=== PATIENT | male | born 1990 | race Two or more races ===

== ENCOUNTER 2023-11-26 08:26 | Emergency (ER) | payer OTHER ==
[~2023-11-26] VITALS: Ht 177.8 cm; Wt 74.8 kg
[2023-11-26] MEDS ORDERED: ORPHENADRINE CITRATE 30 MG/ML AMPUL IM STA (08:40)
[2023-11-26] MEDS ORDERED: DEXAMETHASONE SODIUM PHOSPHATE 4 MG/ML VIAL IM STA (08:40)
[2023-11-26] MEDS ORDERED: KETOROLAC TROMETHAMINE 30 MG VIAL IM ONE (08:45)
[2023-11-26] MEDS ORDERED: IBU800 MG PO (11:25)
== END 2023-11-26 12:05 | disposition home or self-care (01) ==
LOC: ER 08:27
DX: S40.012A Contusion of left shoulder, initial encounter (principal); F17.210 Nicotine dependence, cigarettes, uncomplicated; Z88.0 Allergy status to penicillin; W18.39XA Other fall on same level, initial encounter; Y93.89 Activity, other specified; Y92.018 Other place in single-family (private) house as the place of occurrence of the external cause

== ENCOUNTER 2025-06-01 12:43 | Inpatient (IN) | payer OTHER ==
[~2025-06-01] VITALS: Ht 165.1 cm; Wt 65.3 kg
[~2025-06-01 12:43] MED LIST: IBU800 MG PO
[2025-06-01] MEDS ORDERED: ALBUTEROL SULFATE 3 ML/2.5 MG AMPUL.NEB IH SCH ×2 (14:00→16:30)
[2025-06-01] MEDS ORDERED: KETOROLAC TROMETHAMINE 15 MG VIAL IU ONE (14:00)
[2025-06-01] MEDS ORDERED: 0.9 % SODIUM CHLORIDE 1,000 ML IV ONE (14:00)
[2025-06-01] MEDS ORDERED: ALBUTEROL SULFATE 3 ML/2.5 MG AMPUL.NEB IH ONE ×2 (14:04→17:36)
[2025-06-01] MEDS ORDERED: KETOROLAC TROMETHAMINE 30 MG VIAL ONE (14:16)
[2025-06-01 15:49] LABS: BASO % 0.4 % (0.1-1.2); EOS # 1.43 (0.04-0.54); EOS % 10.1 % (0.7-7.0); LYMPH # 1.91 (1.18-3.74); LYMPH % 13.5 % (19.3-53.1); MEAN PLATELET VOLUME 9.60 fl (9.4-12.4); MONO # 0.69 (0.24-0.82); MONO % 4.9 % (4.7-12.5); NEUT # 10.06 (1.56-6.13); NEUT % 70.7 % (34.0-71.1); RED CELL DISTRIBUTION WIDTH 12.7 % (11.6-14.4)
[2025-06-01 15:49] LABS: URINE APPEARANCE Cloudy; URINE BILIRRUBIN Negative (NEGATIVE); URINE BLOOD Negative; URINE COLOR Yellow; URINE GLUCOSE Negative (NEGATIVE); URINE KETONE Trace (NEGATIVE); URINE LEUKOCYTE Small; URINE NITRATE Negative; URINE PROTEIN Trace (NEGATIVE); URINE UROBILINOGEN 1.0 E.U./dl
[2025-06-01 15:52] LABS: URINE BACTERIA 61.1 uL (0.0-1933); URINE EPITHELIAL CELLS 8.6 uL (0.0-38.8); URINE RBC 25.6 uL (0.0-20.8); URINE WBC 71.8 uL (0.0-23.2)
[2025-06-01] MEDS ORDERED: levoFLOXacin IN DEXTROSE 5 % 5 MG/ML PIGGYBAG IV ONE (16:00)
[2025-06-01 16:07] LABS: COVID-19 AG NEGATIVE (NEGATIVE)
[2025-06-01 16:08] LABS: URINE CAST 0.00 uL (0.0-1.40)
[2025-06-01] MEDS ORDERED: METHYLPREDNISOLONE SOD SUCC 40 MG VIAL ONE (16:31)
[2025-06-01 16:35] LABS: BUN CREA RATIO 13.0 (7.0-25.0); CREATININE SERUM 0.91 mg/dL (0.70-1.30); GFR 94.81; GLUCOSE FASTING 92.0 mg/dL (65-100); OSMOLALITY SERUM 279.0 MOSM/KG (275-295)
[2025-06-01] MEDS ORDERED: METHYLPREDNISOLONE SOD SUCC 40 MG VIAL IV ONE (16:45)
[2025-06-01] MEDS ORDERED: GUAIFENESIN 200 MG/10 ML BLIST.PACK PO SCH (18:33)
[2025-06-01] MEDS ORDERED: IPRATROPIUM/ALBUTEROL SULFATE 3 ML AMPUL.NEB IH SCH (18:33)
[2025-06-01] MEDS ORDERED: levoFLOXacin IN DEXTROSE 5 % 150 ML IV SCH (18:33)
[2025-06-01] MEDS ORDERED: METHYLPREDNISOLONE SOD SUCC 40 MG VIAL IV SCH (18:34)
[2025-06-01] MEDS ORDERED: ACETAMINOPHEN 325 MG TABLET PO PRN (18:45)
[2025-06-01] MEDS ORDERED: 0.9 % SODIUM CHLORIDE 1,000 ML IV SCH (18:45)
[2025-06-01] MEDS ORDERED: IPRATROPIUM/ALBUTEROL SULFATE 3 ML AMPUL.NEB IH ONE (18:51)
[2025-06-01] MEDS ORDERED: GUAIFENESIN 200 MG/10 ML BLIST.PACK PO ONE (18:53)
[2025-06-02 00:34] VITALS: BP 96/62; O2SAT 95
[2025-06-02 08:00] VITALS: BP 101/60; O2SAT 95
[2025-06-02 16:47] LABS: COCAINE POSITIVE (NEGATIVE); METHADONE NEGATIVE (NEGATIVE); OPIATES POSITIVE (NEGATIVE); THC ( Cannabinoids) NEGATIVE (NEGATIVE)
[2025-06-02] MEDS ORDERED: BENZOCAINE/MENTHOL 90 ML BOTTLE TOP SCH (17:00)
[2025-06-02] MEDS ORDERED: LACTOBACILLUS ACIDOPHILUS 1 CAP CAP PO SCH (17:00)
[2025-06-02 17:41] VITALS: BP 90/65
[2025-06-03 01:47] VITALS: BP 103/62; O2SAT 96
[2025-06-03 09:11] VITALS: BP 106/61; O2SAT 96
[2025-06-03] MEDS ORDERED: METHYLPREDNISOLONE SOD SUCC 40 MG VIAL IV SCH (17:00)
[2025-06-03] MEDS ORDERED: EMOLLIENTS 6 OZ BOTTLE TOP SCH (21:00)
[2025-06-03 21:44] VITALS: BP 121/77
[2025-06-04 02:15] VITALS: BP 114/63; O2SAT 96
[2025-06-04 07:53] LABS: BASO % 0.1 % (0.1-1.2); EOS # 0.01 (0.04-0.54); EOS % 0.1 % (0.7-7.0); LYMPH # 0.77 (1.18-3.74); LYMPH % 5.5 % (19.3-53.1); MEAN PLATELET VOLUME 10.10 fl (9.4-12.4); MONO # 0.43 (0.24-0.82); MONO % 3.1 % (4.7-12.5); NEUT # 12.65 (1.56-6.13); NEUT % 90.6 % (34.0-71.1); RED CELL DISTRIBUTION WIDTH 13.2 % (11.6-14.4)
[2025-06-04 08:03] LABS: BUN CREA RATIO 16.0 (7.0-25.0); CREATININE SERUM 0.8 mg/dL (0.70-1.30); GFR 110.01; GLUCOSE FASTING 111.0 mg/dL (65-100); OSMOLALITY SERUM 280.0 MOSM/KG (275-295)
[2025-06-04 10:19] VITALS: BP 120/79; O2SAT 94
[2025-06-05 03:41] VITALS: BP 103/67; O2SAT 97
[2025-06-05 08:28] VITALS: BP 106/53
== END 2025-06-05 12:28 | disposition home or self-care (01) | DRG 206 ==
LOC: ER 12:44 → MEDI 18:56 → SEC-K 18:56 → SURH 22:47 → MEDI 06-02 15:10
PROVIDERS: Emergency Medicine; Internal Medicine; ADMIT Internal Medicine; ATTEND Internal Medicine
PROC: 3E0F7GC Introduction of Other Therapeutic Substance into Respiratory Tract, Via Natural or Artificial Opening (ICD-10-PCS; principal; 2025-06-01)
DX: J68.0 Bronchitis and pneumonitis due to chemicals, gases, fumes and vapors (principal); Z59.02 Unsheltered homelessness; F14.90 Cocaine use, unspecified, uncomplicated; F12.90 Cannabis use, unspecified, uncomplicated; F17.210 Nicotine dependence, cigarettes, uncomplicated; R09.02 Hypoxemia; Z71.51 Drug abuse counseling and surveillance of drug abuser; Z71.6 Tobacco abuse counseling; Z88.0 Allergy status to penicillin